=== PATIENT | male | born 1960 | race African-American/Black ===

== ENCOUNTER 2025-05-18 08:04 | Outpatient (CLI) | payer MEDICARE | END 2025-05-18 08:05 | disposition home or self-care (01) | LOC: CSHWCC 08:04 | PROVIDERS: ATTEND Nurse Practitioner Family | DX: E11.621 Type 2 diabetes mellitus with foot ulcer (principal); L97.522 Non-pressure chronic ulcer of other part of left foot with fat layer exposed; L08.89 Other specified local infections of the skin and subcutaneous tissue | CPT/HCPCS: 11042; G0463; 99214 ==

== ENCOUNTER 2025-05-28 15:15 | Outpatient (CLI) | payer MEDICARE | END 2025-05-28 15:16 | disposition home or self-care (01) | LOC: CSHWCC 15:15 | PROVIDERS: ATTEND Family Medicine | DX: E11.621 Type 2 diabetes mellitus with foot ulcer (principal); L97.522 Non-pressure chronic ulcer of other part of left foot with fat layer exposed; L08.89 Other specified local infections of the skin and subcutaneous tissue | CPT/HCPCS: 11042 ==

== ENCOUNTER 2025-06-02 09:19 | Outpatient (CLI) | payer MEDICARE | END 2025-06-02 09:20 | disposition home or self-care (01) | LOC: CSHWCC 09:19 | PROVIDERS: ATTEND Nurse Practitioner Family | DX: E11.621 Type 2 diabetes mellitus with foot ulcer (principal); L97.522 Non-pressure chronic ulcer of other part of left foot with fat layer exposed; L08.89 Other specified local infections of the skin and subcutaneous tissue | CPT/HCPCS: 11042 ==